=== PATIENT | female | born 1980 | race Caucasian/White ===

== ENCOUNTER → 2017-03-18 | Outpatient (CLI) | payer OTHER ==
[~2017-03-18] MED LIST: CATHETER FLUSH 10 ML SYR IV PRN; IOHEXOL 350 MG/ML 100 ML (OMNIPAQUE 350) VIAL IV ONE; LVT.15T PO; NS 100 ML (IVPB) BAG IV ONE; SPRINTEC PO
--- NOTE | 2017-03-18 10:08 | Diagnostic Imaging Report ---
PROCEDURE: CT abdomen with contrast only. TECHNIQUE: Multiple contiguous axial images were obtained through the abdomen after the administration of intravenous contrast. INDICATION: Focal nodular hyperplasia of liver with abdominal pain Multiple contiguous axial CT images of the abdomen are obtained after intravenous administration of iodinated contrast. Comparison is made to study of 02/20/2012. Once again, there are multiple nodular foci of early contrast enhancement throughout the liver which becomes isodense to liver on delayed phase images. These demonstrate heterogeneous diffuse enhancement without centripetal pattern typical for hemangioma. The largest is in the medial segment of the left lobe and measures approximately 6 x 5 x 5 cm. Additional nodules in the dome of the left lobe and the dome of the right lobe measure up to approximately 4.5 cm in diameter. There is no evidence of biliary ductal dilatation. Gallbladder surgically absent. No pancreatic, splenic or adrenal gland abnormality is identified and the kidneys have a normal appearance. No free fluid is seen is in the abdomen. There is no evidence of pathologic abdominal adenopathy. IMPRESSION: Mild overall enlargement of multiple early enhancing nodules throughout the liver. This would be consistent with focal nodular hyperplasia. Only minimal warp changer the course of 5 year followup suggests benign etiology. Dictated by: Dictated on workstation # [id number]
== END ==
LOC: RAD 08:55
PROVIDERS: ATTEND Family Medicine
DX: K76.89 Other specified diseases of liver (principal); R10.84 Generalized abdominal pain
CPT/HCPCS: 74160

== ENCOUNTER 2017-06-04 05:41 | Outpatient (CLI) | payer OTHER ==
[~2017-06-04] VITALS: Ht 157.5 cm; Wt 86.2 kg
[~2017-06-04 05:41] MED LIST changes: -CATHETER FLUSH 10 ML SYR IV PRN; -IOHEXOL 350 MG/ML 100 ML (OMNIPAQUE 350) VIAL IV ONE; -NS 100 ML (IVPB) BAG IV ONE
== END 2017-06-04 10:41 ==
LOC: PREOP 05:41
PROVIDERS: ATTEND Obstetrics & Gynecology
DX: Z01.818 Encounter for other preprocedural examination (principal); R10.2 Pelvic and perineal pain; N93.8 Other specified abnormal uterine and vaginal bleeding; N92.0 Excessive and frequent menstruation with regular cycle

== ENCOUNTER 2017-06-12 12:11 | Emergency (ER) | payer OTHER ==
[~2017-06-12] VITALS: Ht 160 cm; Wt 72.6 kg
[~2017-06-12 12:11] MED LIST changes: +DOCU100C37 PO; +IBUP-1780 PO; +OXYC-465 PO
--- NOTE | 2017-06-12 13:40 | ED GI ---
General Chief Complaint: Abdominal/GI Problems Stated Complaint: POST OP POSSIBLE IMPACTION Nursing Triage Note: PT HAD A HYSTERECTOMY ON SATURDAY AND HAS NOT HAD A BM SINCE DESPITE USING COLACE AND MIRLAX. Sepsis Screen: No Definite Risk Source of Information: Patient Exam Limitations: No Limitations History of Present Illness Time Seen By Provider: 13:36 Initial Comments The patient is a 37-year-old white female who had a laparoscopic hysterectomy bilateral salpingo-left nephrectomy plus lysis of adhesions and distraction of endometriosis and laparoscopic appendectomy on 06/07. She had a bowel movement on the evening of 06/06. She has had none since. She has not vomited and has been eating. She is taken MiraLAX at least once every day since without results. Timing/Duration: 5-6 Days Allergies and Home Medications Allergies Coded Allergies: Sulfa (Sulfonamide Antibiotics) (Verified Allergy, Intermediate, NAUSEA, 06/04/17) acetaminophen (Verified Allergy, Intermediate, N/V, 06/04/17) codeine (Verified Allergy, Intermediate, HALLICINATE, 06/04/17) hydrocodone (Verified Allergy, Intermediate, N/V, 06/04/17) cefaclor (Verified Allergy, Mild, RASH, 06/04/17) Home Medications Docusate Sodium 100 Mg Capsule, 100 MG PO BID, #60 Prescribed by: FABIEN LIMA on 06/07/171909 Ibuprofen 800 Mg Tablet, 800 MG PO Q6H, #60 Prescribed by: FABIEN LIMA on 06/07/171909 Oxycodone HCl/Acetaminophen 1 Each Tablet, 1-2 TAB PO Q4HR PRN for PAIN- MODERATE TO SEVERE, #60 Prescribed by: FABIEN LIMA on 06/07/171909 Review of Systems Constitutional: see HPI EENTM: No Symptoms Reported Respiratory: No Symptoms Reported Cardiovascular: No Symptoms Reported Gastrointestinal: See HPI Genitourinary: No Symptoms Reported Musculoskeletal: no symptoms reported Skin: no symptoms reported Psychiatric/Neurological: No Symptoms Reported Endocrine: No Symptoms Reported Hematologic/Lymphatic: No Symptoms Reported Past Czjhjno-Qqrpxu-Fysmhb Hx Patient Social History Type Used: Cigarettes Recent Foreign Travel: No Contact w/Someone Who Travel: No Recent Infectious Disease Expo: No Recent Hopitalizations: No Immunizations Up To Date Date of Influenza Vaccine: May 14, 2016 Seasonal Allergies Seasonal Allergies: Yes Surgeries History of Surgeries: Yes (WISDOM TEETH) Surgeries: Gallbladder Respiratory History of Respiratory Disorde: No Cardiovascular History of Cardiac Disorders: No Neurological History of Neurological Disord: Yes Neurological Disorders: Headaches /Migraines Reproductive System Hx Reproductive Disorders: Yes (MENORRHAGIA, CPP, DUB) Sexually Transmitted Disease: No HIV/AIDS: No Female Reproductive Disorders: Menstrual Problems, Endometriosis Gastrointestinal History of Gastrointestinal Di: Yes (FOCAL NODULE HYPERPLASIA-NO LONGER SEES SPECIALIST) Gastrointestinal Disorders: Liver Disease/Jaundice, Chronic Constipation, Chronic Diarrhea Musculoskeletal History of Musculoskeletal Dis: No Endocrine History of Endocrine Disorders: No HEENT History of HEENT Disorders: No Loss of Vision: Denies Hearing Impairment: Denies Cancer History of Cancer: No Psychosocial History of Psychiatric Problem: Yes (OCD) Behavioral Health Disorders: Anxiety Integumentary History of Skin or Integumenta: No Blood Transfusions History of Blood Disorders: No Adverse Reaction to a Blood Tr: No Physical Exam Vital Signs VS - Last 72 Hours, by Label 06/12/17 12:55 Temp 98.0 Pulse 107 Resp 18 B/P (MAP) 163/101 Pulse Ox 97 O2 Delivery Room Air Capillary Refill : Less Than 3 Seconds General Appearance: mild distress HEENT: normal ENT inspection Neck: full range of motion Respiratory: chest non-tender, lungs clear, normal breath sounds, no respiratory distress, no accessory muscle use Cardiovascular: normal peripheral pulses, regular rate, rhythm, no edema, no gallop, no JVD, no murmur Gastrointestinal: normal bowel sounds, non tender, soft, no organomegaly, no pulsatile mass Rectal: other (no stool in vault) Progress/Results/Core Measures Results/Orders My Orders Orders - DISHA ESTEVEZ MD Abdomen/Kub 1view (06/12/17 13:33) Vital Signs/I&O Vital Sign - Last 12Hours 06/12/17 12:55 Temp 98.0 Pulse 107 Resp 18 B/P (MAP) 163/101 Pulse Ox 97 O2 Delivery Room Air Blood Pressure Mean: 121 Departure Communication (Admissions) Progress Notes KUB as interpreted by me shows considerable gas throughout the GI tract. Stool is noted at what appears to be terminal small bowel. Impression Impression: Primary Impression: postop constipation Disposition: 01 HOME, SELF-CARE Condition: Stable/Unchanged Departure-Patient Inst. Decision time for Depature: 13:57 Referrals: BARRINGTON STEVENSON MD (PCP/Family) Primary Care Physician Patient Instructions: No Instuctions Given Add. Discharge Instructions: All discharge instructions reviewed with patient and/or family. Voiced understanding. Acquire 10 ounces of magnesium citrate. This can be obtained [id number] at a pharmacy. For this over ice and take it all. Geovani it with a large glass of water. DISHA ESTEVEZ MD Jun 12, 2017 13:40
[2017-06-12 14:04] VITALS: BP 177/113
--- NOTE | 2017-06-12 14:08 | Diagnostic Imaging Report ---
Supine view of the abdomen. INDICATION: Hysterectomy. Constipation. FINDINGS: No dilated bowel loops are seen with slight increased air density within small bowel loops and the colon. No significant fecal material is seen. There are surgical clips in the upper abdomen. IMPRESSION: No evidence of significant ileus or small bowel obstruction. Dictated by: Dictated on workstation # [id number]
== END 2017-06-12 14:04 | disposition home or self-care (01) ==
LOC: EDUNIT# 12:11 → ER 12:12
DX: N99.89 Other postprocedural complications and disorders of genitourinary system (principal); K59.09 Other constipation; F42.9 Obsessive-compulsive disorder, unspecified; F41.9 Anxiety disorder, unspecified; G43.909 Migraine, unspecified, not intractable, without status migrainosus; Z87.19 Personal history of other diseases of the digestive system; Z90.710 Acquired absence of both cervix and uterus; Z90.5 Acquired absence of kidney
CPT/HCPCS: 74000; 99282

== ENCOUNTER 2017-11-04 04:38 | Emergency (ER) | payer OTHER ==
[~2017-11-04] VITALS: Ht 157.5 cm; Wt 81.6 kg
[2017-11-04 05:17] LABS: BILIRUBIN,URINE NEGATIVE (NEGATIVE); CLARITY,URINE SLIGHTLY CLOUDY; GLUCOSE, URINE (UA) NEGATIVE (NEGATIVE); KETONES,URINE NEGATIVE (NEGATIVE); LEUKOCYTE ESTERASE ,URINE 1+ (NEGATIVE); NITRITE,URINE NEGATIVE (NEGATIVE); PH,URINE 7 (5-9); PROTEIN,URINE 1+ (NEGATIVE); UROBILINOGEN,URINE NORMAL (NORMAL)
[2017-11-04 05:24] LABS: BACTERIA,URINE LARGE /HPF; COLOR,URINE YELLOW; WBC,URINE RARE /HPF
[2017-11-04 05:25] LABS: AMORPHOUS SEDIMENT,UR FEW AMOR PHOSPHATE /LPF
--- NOTE | 2017-11-04 05:41 | ED Abdominal Pain ---
General Chief Complaint: Abdominal/GI Problems Stated Complaint: AB PAIN Nursing Triage Note: PATIENT HAD HYSTERECTOMY FOR ENDOMETRIOSIS IN JUNE. THEY LEFT RIGHT RIGHT OVARY. LASTNIGHT AT 2100 SHE STARTED HAVING A CRAMPING PAIN IN HER RIGHT OVARY, SIMILAR TO HOW HER LEFT USED TO FEEL BEFORE IT WAS REMOVED. SHE TOOK NAPROXEN AND IT DID NOT HELP. Sepsis Screen: No Definite Risk Source of Information: Patient Exam Limitations: No Limitations History of Present Illness Date Seen by Provider: Nov 04, 2017 Time Seen by Provider: 05:27 Initial Comments Here with report of right lower quadrant suprapubic abdominal pain that started about 9 p.m. last night. States the pain is cramping. Also has some constipation and pain with bowel movement. She denies dysuria specifically. Denies fever or chills. She did take acetaminophen last night and the naproxen this morning. These are not helping the pain. Timing/Duration: 12 Hours Severity/Quality: Moderate Location: RLQ, Suprapubic Radiation: No Radiation Activities at Onset: None Modifying Factors: Improves With Resting Associated Symptoms: No Back Pain, No Chest Pain, No Fever/Chills, No Fatigue, No Nausea/Vomiting, No Swelling/Mass in Abdomen, No Weakness Allergies and Home Medications Allergies Coded Allergies: Sulfa (Sulfonamide Antibiotics) (Verified Allergy, Intermediate, NAUSEA, 06/04/17) acetaminophen (Verified Allergy, Intermediate, N/V, 06/04/17) codeine (Verified Allergy, Intermediate, HALLICINATE, 06/04/17) hydrocodone (Verified Allergy, Intermediate, N/V, 06/04/17) cefaclor (Verified Allergy, Mild, RASH, 06/04/17) Home Medications Docusate Sodium 100 Mg Capsule, 100 MG PO BID Prescribed by: FABIEN LIMA on 06/07/171909 Ibuprofen 800 Mg Tablet, 800 MG PO Q6H Prescribed by: FABIEN LIMA on 06/07/171909 Oxycodone HCl/Acetaminophen 1 Each Tablet, 1-2 TAB PO Q4HR PRN for PAIN- MODERATE TO SEVERE Prescribed by: FABIEN LIMA on 06/07/171909 Patient Home Medication List Home Medication List Reviewed: Yes Review of Systems Constitutional: see HPI, No chills, No fever EENTM: No Symptoms Reported Respiratory: No Symptoms Reported Cardiovascular: No Symptoms Reported Gastrointestinal: See HPI, Abdominal Pain Genitourinary: Denies Burning, Denies Frequency Musculoskeletal: no symptoms reported Skin: no symptoms reported Past Iqvqzrg-Jinbnd-Ioaomu Hx Patient Social History Alcohol Use: Denies Use Recreational Drug Use: Yes (SMOKES 1/2 PPD) Smoking Status: Current Everyday Smoker Type Used: Cigarettes 2nd Hand Smoke Exposure: Yes Recent Foreign Travel: No Contact w/Someone Who Travel: No Recent Infectious Disease Expo: No Recent Hopitalizations: No Physical Abuse: No Sexual Abuse: No Immunizations Up To Date Date of Influenza Vaccine: May 14, 2016 Seasonal Allergies Seasonal Allergies: Yes Surgeries History of Surgeries: Yes (WISDOM TEETH) Surgeries: Gallbladder, Hysterectomy Respiratory History of Respiratory Disorde: No Cardiovascular History of Cardiac Disorders: No Neurological History of Neurological Disord: Yes Neurological Disorders: Headaches /Migraines Reproductive System Hx Reproductive Disorders: Yes (MENORRHAGIA, CPP, DUB) Sexually Transmitted Disease: No HIV/AIDS: No Female Reproductive Disorders: Menstrual Problems, Endometriosis Genitourinary History of Genitourinary Disor: No Gastrointestinal History of Gastrointestinal Di: Yes (FOCAL NODULE HYPERPLASIA-NO LONGER SEES SPECIALIST) Gastrointestinal Disorders: Liver Disease/Jaundice, Chronic Constipation, Chronic Diarrhea Musculoskeletal History of Musculoskeletal Dis: No Endocrine History of Endocrine Disorders: No HEENT History of HEENT Disorders: No Loss of Vision: Denies Hearing Impairment: Denies Cancer History of Cancer: No Psychosocial History of Psychiatric Problem: Yes (OCD) Behavioral Health Disorders: Anxiety Suicide Risk Score: 0 Integumentary History of Skin or Integumenta: No Blood Transfusions History of Blood Disorders: No Adverse Reaction to a Blood Tr: No Reviewed Nursing Assessment Reviewed/Agree w Nursing PMH: Yes Family Medical History Significant Family History: No Pertinent Family Hx Physical Exam Vital Signs VS - Last 72 Hours, by Label 11/04/17 04:50 Temp 97.5 Pulse 101 Resp 20 B/P (MAP) 177/123 (141) Pulse Ox 98 Capillary Refill : Less Than 3 Seconds General Appearance: WD/WN, no apparent distress Neck: full range of motion, supple Respiratory: lungs clear, normal breath sounds Cardiovascular: regular rate, rhythm, no murmur Peripheral Pulses: 2+ Dorsalis Pedis (R), 2+ Left Dors-Pedis (L) (Phenergan.) Gastrointestinal: non tender, soft Extremities: normal range of motion, non-tender Neurologic/Psychiatric: alert, oriented x 3 Skin: normal color, warm/dry Progress/Results/Core Measures Results/Orders Lab Results Laboratory Tests Test 11/04/17 05:12 Range/Units Urine Color YELLOW Urine Clarity SLIGHTLY CLOUDY Urine pH 7 5-9 Urine Specific Harvey 1.015 L 1.016-1.022 Urine Protein 1+ H NEGATIVE Urine Glucose (UA) NEGATIVE NEGATIVE Urine Ketones NEGATIVE NEGATIVE Urine Nitrite NEGATIVE NEGATIVE Urine Bilirubin NEGATIVE NEGATIVE Urine Urobilinogen NORMAL NORMAL MG/DL Urine Leukocyte Esterase 1+ H NEGATIVE Urine RBC (Auto) NEGATIVE NEGATIVE Urine RBC NONE /HPF Urine WBC RARE /HPF Urine Squamous Epithelial Cells 2-5 /HPF Urine Crystals PRESENT H /LPF Urine Amorphous Sediment FEW VINNIE PHOSPHATE H /LPF Urine Bacteria LARGE H /HPF Urine Casts NONE /LPF Urine Mucus SMALL H /LPF Urine Culture Indicated YES My Orders Orders - KELSEY SAAVEDRA MD Ua Culture If Indicated (11/04/17 05:09) Urine Culture (11/04/17 05:12) Oxycodone/Apap 5/325mg Tablet (Percocet (11/04/17 05:45) Vital Signs/I&O Vital Sign - Last 12Hours 11/04/17 04:50 Temp 97.5 Pulse 101 Resp 20 B/P (MAP) 177/123 (141) Pulse Ox 98 Blood Pressure Mean: 141 Progress Note : Progress Note Seen and evaluated. UA ordered. Questionable urinary tract infection. She does have remaining right ovary but has had appendectomy. We will initiate treatment for possible urinary tract infection and give pain medicine for possible ovarian cyst. She is not child bearing capable. It seems reasonable to see if she has improvement over the next few days and if not to seek further evaluation for ultrasound of the ovary. She agrees with that plan. Discharged home with return precautions. Patient verbalize understanding instructions and agreement with plan. She was given Cipro 500 mg when necessary oxycodone 5/325 one tab by mouth. Departure Impression Impression: Primary Impression: Right lower quadrant abdominal pain Additional Impression: Urinary tract infection Qualified Codes: N30.00 - Acute cystitis without hematuria Disposition: HOME, SELF-CARE Condition: Improved Departure-Patient Inst. Decision time for Depature: 05:48 Referrals: BARRINGTON STEVENSON MD (PCP/Family) Primary Care Physician Patient Instructions: Ovarian Cyst (DC), Acute Abdomen (Belly Pain), Adult (DC) , Urinary Tract Infection, Adult (DC) Add. Discharge Instructions: All discharge instructions reviewed with patient and/or family. Voiced understanding. You may continue naproxen 500 mg twice daily or ibuprofen 800 mg every 8 hours for pain. Take prescribed pain medicine or you may take acetaminophen 1000 mg every 8 hours as needed for pain. Do not take both as the prescribed pain medicine has acetaminophen in it. Drink plenty of fluids. Take other medications as prescribed. Follow-up with your Dr. in a few days for recheck and further evaluation especially if not improving. If you're not improved in a couple days, you should get further evaluation and potentially ultrasound to evaluate the ovary better. Return for worse pain, fever, vomiting, weakness, breathing problems or other concerns as needed. Scripts Oxycodone HCl/Acetaminophen (Oxycodone-Acetaminophen 5-325) 1 Each Tablet 1-2 EACH PO Q6H Y for PAIN, #12 TAB 0 Refills Prov: KELSEY SAAVEDRA MD 11/04/17 Ciprofloxacin HCl (Ciprofloxacin HCl) 500 Mg Tablet 500 MG PO BID, #6 TAB 0 Refills Prov: KELSEY SAAVEDRA MD 11/04/17 KELSEY SAAVEDRA MD Nov 04, 2017 05:40
[2017-11-04] MEDS ORDERED: oxyCODONE/APAP 5/325MG (PERCOCET 5) TABLET PO ONE (05:45)
[2017-11-04] MEDS ORDERED: CIPROFLOXACIN 500 MG (CIPRO) TABLET PO SCH (05:45)
[2017-11-04] MEDS ORDERED: CIPR500T4 PO (05:51)
[2017-11-04] MEDS ORDERED: OXYC-471 PO (05:51)
[2017-11-04 05:56] VITALS: BP 177/123
== END 2017-11-04 06:00 | disposition home or self-care (01) ==
LOC: EDUNIT# 04:38 → ER 04:40
DX: N39.0 Urinary tract infection, site not specified (principal); G43.909 Migraine, unspecified, not intractable, without status migrainosus; F41.9 Anxiety disorder, unspecified; F42.9 Obsessive-compulsive disorder, unspecified; F17.210 Nicotine dependence, cigarettes, uncomplicated; Z88.2 Allergy status to sulfonamides; Z88.5 Allergy status to narcotic agent; Z87.19 Personal history of other diseases of the digestive system; Z88.6 Allergy status to analgesic agent; Z88.8 Allergy status to other drugs, medicaments and biological substances; Z90.710 Acquired absence of both cervix and uterus
CPT/HCPCS: 81000; 87088; 99283

== ENCOUNTER 2018-06-27 16:37 | Emergency (ER) | payer SELFPAY ==
[~2018-06-27] VITALS: Ht 160 cm; Wt 72.6 kg
[~2018-06-27 16:37] MED LIST changes: +CIPR500T4 PO; +OXYC-471 PO
[2018-06-27 17:02] LABS: BASOPHILS % (AUTO) 0 % (0-10); EOSINOPHILS % (AUTO) 0 % (0-10); HEMATOCRIT 46 % (35-52); HEMOGLOBIN 15.7 G/DL (11.5-16.0); LYMPHOCYTES # (AUTO) 1.5 X 10^3 (1.0-4.0); LYMPHOCYTES % (AUTO) 16 % (12-44); MEAN CORPUSCULAR HEMOGLOBIN 32 PG (25-34); MEAN CORPUSCULAR HGB CONC 34 G/DL (32-36); MEAN CORPUSCULAR VOLUME 92 FL (80-99); MEAN PLATELET VOLUME 8.7 FL (7.4-10.4); MONOCYTES # (AUTO) 0.4 X 10^3 (0.0-1.0); MONOCYTES % (AUTO) 5 % (0-12); NEUTROPHILS # (AUTO) 7.6 X 10^3 (1.8-7.8); NEUTROPHILS % (AUTO) 79 % (42-75); PLATELET COUNT 255 10^3/uL (130-400); RED BLOOD COUNT 4.99 10^6/uL (4.35-5.85); RED CELL DISTRIBUTION WIDTH 12.7 % (10.0-14.5); WHITE BLOOD COUNT 9.6 10^3/uL (4.3-11.0)
--- OUTSIDE RECORDS SUMMARY | 2018-06-27 17:12 | XMS REPORT | Clinical Summary ---
Author Author [facility] Organization [facility] Address Unknown Phone Unavailable Care Team Providers Care Doll Maker Name Role Phone PCP Unavailable Allergies Not on File Current Medications Not on file Active Problems Not on file Social History Tobacco Use Types Packs/Day Years Used Date Never Assessed Sex Assigned at Date Recorded Not on file Last Filed Vital Signs Not on file Plan of Treatment Not on file Results Not on filefrom Last 3 Months
[2018-06-27 17:21] LABS: ALANINE AMINOTRANSFERASE 53 U/L (0-55); ALBUMIN 4.7 GM/DL (3.2-4.5); ALKALINE PHOSPHATASE 141 U/L (40-136); BILIRUBIN,TOTAL 0.3 MG/DL (0.1-1.0); BUN/CREATININE RATIO 7; CALCIUM 9.5 MG/DL (8.5-10.1); CARBON DIOXIDE 16 MMOL/L (21-32); CHLORIDE 109 MMOL/L (98-107); CREATININE SERUM 0.83 MG/DL (0.60-1.30); GFR ESTIMATED > 60; GLUCOSE 110 MG/DL (70-105); POTASSIUM 3.9 MMOL/L (3.6-5.0); SODIUM 138 MMOL/L (135-145); TOTAL PROTEIN 7.8 GM/DL (6.4-8.2)
[2018-06-27 17:24] LABS: ERYTHROCYTE SEDIMENTATION RATE 4 MM/HR (0-20)
--- NOTE | 2018-06-27 17:45 | Diagnostic Imaging Report ---
EXAMINATION: CT brain without contrast dated 06/27/2018. TECHNIQUE: Multiple contiguous axial images were obtained through the brain without the use of intravenous contrast. INDICATION: Optic nerve inflammation. Right eye pain and loss of vision in the right eye for the last five days. COMPARISON: No prior imaging available for comparison. FINDINGS: Axial imaging of the brain demonstrates no evidence for acute abnormality. No mass, mass effect, or midline shift is seen. There is no hydrocephalus. No acute hemorrhage or infarct appreciated. Osseous structures demonstrate no acute disease. The visualized sinuses and mastoid air cells are unremarkable. IMPRESSION: 1. No acute intracranial process. Dictated by: Dictated on workstation # [id number]
[2018-06-27] MEDS ORDERED: ACHD5005 PO (18:09)
--- NOTE | 2018-06-27 18:09 | ED EENT ---
History of Present Illness General Chief Complaint: Eye Problems Stated Complaint: LOSS OF VISION IN R EYE Nursing Triage Note: PT SENT OVER FROM DR TERRELL OFFICE WITH COMPLAINT OF BLURRED VISION IN RIGHT EYE. PT STATES IT STARTED ON SATURDAY AND HAS WORSENED. Source: patient, family () Exam Limitations: no limitations History of Present Illness Date Seen by Provider: Jun 27, 2018 Time Seen by Provider: 18:36 Allergies and Home Medications Allergies Coded Allergies: Sulfa (Sulfonamide Antibiotics) (Verified Allergy, Intermediate, NAUSEA, 06/04/17) acetaminophen (Verified Allergy, Intermediate, N/V, 06/04/17) codeine (Verified Allergy, Intermediate, HALLICINATE, 06/04/17) hydrocodone (Verified Allergy, Intermediate, N/V, 06/04/17) cefaclor (Verified Allergy, Mild, RASH, 06/04/17) Home Medications Ciprofloxacin HCl 500 Mg Tablet, 500 MG PO BID Prescribed by: KELSEY SAAVEDRA on 11/04/17 0551 Docusate Sodium 100 Mg Capsule, 100 MG PO BID Prescribed by: FABIEN LIMA on 06/07/171909 Ibuprofen 800 Mg Tablet, 800 MG PO Q6H Prescribed by: FABIEN LIMA on 06/07/171909 Oxycodone HCl/Acetaminophen 1 Each Tablet, 1-2 TAB PO Q4HR PRN for PAIN- MODERATE TO SEVERE Prescribed by: FABIEN LIMA on 06/07/171909 Oxycodone HCl/Acetaminophen 1 Each Tablet, 1-2 EACH PO Q6H PRN for PAIN Prescribed by: KELSEY SAAVEDRA on 11/04/17 0551 Oxycodone HCl/Acetaminophen 1 Each Tablet, 1 EACH PO Q6H PRN for PAIN-MODERATE Prescribed by: ONEIL MACDONALD on 06/27/181811 Past Ebnqxls-Obydoh-Jfrwng Hx Patient Social History Alcohol Use: Denies Use Recreational Drug Use: Yes (SMOKES 1/2 PPD) Smoking Status: Current Everyday Smoker Type Used: Cigarettes 2nd Hand Smoke Exposure: Yes Recent Foreign Travel: No Contact w/Someone Who Travel: No Recent Infectious Disease Expo: No Recent Hopitalizations: No Immunizations Up To Date Tetanus Booster (TDap): Unknown Date of Influenza Vaccine: May 14, 2016 Seasonal Allergies Seasonal Allergies: Yes Past Medical History Surgeries: Yes (WISDOM TEETH) Gallbladder, Hysterectomy Respiratory: No Cardiac: No Neurological: Yes Headaches /Migraines Reproductive Disorders: Yes (MENORRHAGIA, CPP, DUB) Female Reproductive Disorders: Menstrual Problems, Endometriosis Sexually Transmitted Disease: No HIV/AIDS: No Genitourinary: No Gastrointestinal: Yes (FOCAL NODULE HYPERPLASIA-NO LONGER SEES SPECIALIST) Liver Disease/Jaundice, Chronic Constipation, Chronic Diarrhea Musculoskeletal: No Endocrine: No HEENT: No Loss of Vision: Denies Hearing Impairment: Denies Cancer: No Psychosocial: Yes (OCD) Anxiety Integumentary: No Blood Disorders: No Adverse Reaction/Blood Tranf: No Family Medical History No Pertinent Family Hx Physical Exam Vital Signs Vital Signs - First Documented 06/27/18 16:48 Temp 99.8 Pulse 112 Resp 20 B/P (MAP) 144/102 (116) Pulse Ox 98 O2 Delivery Room Air Height, Weight, BMI Height: 5'3.00" Weight: 160lbs. 0oz. [id number]; 34.8 BMI Method:Stated Progress/Results/Core Measures Results/Orders Lab Results My Orders Vital Signs/I&O Blood Pressure Mean: 116 Departure Impression Primary Impression: Optic neuritis Disposition: HOME, SELF-CARE Condition: Stable/Unchanged Departure-Patient Inst. Decision time for Depature: 18:06 Referrals: JONI BECKER OD, RACHEL L MD (PCP/Family) Primary Care Physician Patient Instructions: Optic Neuritis Add. Discharge Instructions: Take medications as directed. Follow-up with Dr. Becker at [facility] first thing Saturday morning for a recheck. Return back to the emergency room for any worsening symptoms turns as needed. All discharge instructions reviewed with patient and/or family. Voiced understanding. Scripts Oxycodone HCl/Acetaminophen (Oxycodone-Acetaminophen 5-325) 1 Each Tablet 1 EACH PO Q6H PRN for PAIN-MODERATE MDD 6, #14 TAB Prov: ONEIL MACDONALD 06/27/18 ONEIL MACDONALD Jun 27, 2018 18:09
[2018-06-27] MEDS ORDERED: OXYC-471 PO (18:12)
[2018-06-27] MEDS ORDERED: oxyCODONE/APAP 5/325MG (PERCOCET 5) TABLET PO ONE (18:15)
[2018-06-27 18:48] VITALS: BP 144/102
== END 2018-06-27 18:48 | disposition home or self-care (01) ==
LOC: EDUNIT# 16:37 → ER 16:38
DX: H46.9 Unspecified optic neuritis (principal); F41.9 Anxiety disorder, unspecified; F42.9 Obsessive-compulsive disorder, unspecified; F17.210 Nicotine dependence, cigarettes, uncomplicated; Z90.710 Acquired absence of both cervix and uterus; Z87.19 Personal history of other diseases of the digestive system; Z88.2 Allergy status to sulfonamides; Z88.5 Allergy status to narcotic agent; Z88.8 Allergy status to other drugs, medicaments and biological substances
CPT/HCPCS: 36415; 70450; 80053; 85025; 85652; 86141

== ENCOUNTER 2018-12-01 19:46 | Emergency (ER) | payer BC, OTHER ==
[~2018-12-01] VITALS: Ht 160 cm; Wt 72.6 kg
[~2018-12-01 19:46] MED LIST changes: +ACHD5005 PO
[2018-12-01] MEDS ORDERED: LIDOCAINE 1% INJ 20 ML 20 ML VIAL ONE (19:49)
--- NOTE | 2018-12-01 20:11 | ED Upper Extremity ---
General Chief Complaint: Laceration Stated Complaint: LEFT HAND THUMB LAC Source: patient Exam Limitations: no limitations History of Present Illness Date Seen by Provider: Dec 01, 2018 Time Seen by Provider: 20:09 Initial Comments To ER with laceration to the pad of her left thumb from cutting apples just prior to arrival. Onset: just prior to arrival Severity: moderate Pain/Injury Location: left thumb Method of Injury: unknown Modifying Factors: Worse With Movement Allergies and Home Medications Allergies Coded Allergies: Sulfa (Sulfonamide Antibiotics) (Verified Allergy, Intermediate, NAUSEA, 06/04/17) acetaminophen (Verified Allergy, Intermediate, N/V, 06/04/17) codeine (Verified Allergy, Intermediate, HALLICINATE, 06/04/17) hydrocodone (Verified Allergy, Intermediate, N/V, 06/04/17) cefaclor (Verified Allergy, Mild, RASH, 06/04/17) Home Medications Ciprofloxacin HCl 500 Mg Tablet, 500 MG PO BID Prescribed by: KELSEY SAAVEDRA on 11/04/17550 Docusate Sodium 100 Mg Capsule, 100 MG PO BID Prescribed by: FABIEN LIMA on 06/07/171909 Ibuprofen 800 Mg Tablet, 800 MG PO Q6H Prescribed by: FABIEN LIMA on 06/07/171909 Oxycodone HCl/Acetaminophen 1 Each Tablet, 1-2 TAB PO Q4HR PRN for PAIN- MODERATE TO SEVERE Prescribed by: FABIEN LIMA on 06/07/171909 Oxycodone HCl/Acetaminophen 1 Each Tablet, 1-2 EACH PO Q6H PRN for PAIN Prescribed by: KELSEY SAAVEDRA on 11/04/17 0551 Oxycodone HCl/Acetaminophen 1 Each Tablet, 1 EACH PO Q6H PRN for PAIN-MODERATE Prescribed by: ONEIL MACDONALD on 06/27/18 1812 Patient Home Medication List Home Medication List Reviewed: Yes Review of Systems Constitutional: see HPI EENTM: see HPI Respiratory: no symptoms reported Cardiovascular: no symptoms reported Genitourinary: no symptoms reported Musculoskeletal: no symptoms reported Skin: see HPI Psychiatric/Neurological: No Symptoms Reported Past Spufzpf-Ffdchf-Hrpqov Hx Patient Social History Type Used: Cigarettes 2nd Hand Smoke Exposure: Yes Recent Foreign Travel: No Contact w/Someone Who Travel: No Recent Hopitalizations: No Immunizations Up To Date Tetanus Booster (TDap): Unknown Date of Influenza Vaccine: May 14, 2016 Seasonal Allergies Seasonal Allergies: Yes Past Medical History Surgeries: Yes (WISDOM TEETH) Gallbladder, Hysterectomy Respiratory: No Cardiac: No Neurological: Yes Headaches /Migraines Reproductive Disorders: Yes (MENORRHAGIA, CPP, DUB) Female Reproductive Disorders: Menstrual Problems, Endometriosis Sexually Transmitted Disease: No HIV/AIDS: No Genitourinary: No Gastrointestinal: Yes (FOCAL NODULE HYPERPLASIA-NO LONGER SEES SPECIALIST) Liver Disease/Jaundice, Chronic Constipation, Chronic Diarrhea Musculoskeletal: No Endocrine: No HEENT: No Loss of Vision: Denies Hearing Impairment: Denies Cancer: No Psychosocial: Yes (OCD) Anxiety Integumentary: No Blood Disorders: No Adverse Reaction/Blood Tranf: No Family Medical History No Pertinent Family Hx Physical Exam Vital Signs Capillary Refill : Less Than 3 Seconds Height, Weight, BMI Height: 5'3.00" Weight: 160lbs. 0oz. 72.982306sr; 34.8 BMI Method:Stated General Appearance: WD/WN, no apparent distress HEENT: PERRL/EOMI, normal ENT inspection Respiratory: no respiratory distress, no accessory muscle use Shoulder: normal inspection, non-tender Elbow/Forearm: normal inspection, non-tender Hand: Left, laceration (skin avulsion superficially to the tip of the left thumb. Tourniquet applied, covered with glue simply for hemostasis. Which was achieved) Neurologic/Tendon: normal sensation, normal motor functions Neurologic/Psychiatric: alert, normal mood/affect, oriented x 3 Skin: normal color, warm/dry Departure Impression Primary Impression: Skin avulsion Disposition: 01 HOME, SELF-CARE Condition: Stable Departure-Patient Inst. Decision time for Depature: 20:10 Referrals: BARRNIGTON STEVENSON MD (PCP/Family) Primary Care Physician Patient Instructions: SKIN AVULSION Add. Discharge Instructions: 1. Keep this covered with a Band-Aid as much as she can for the next few days just to help protect this. The glue should fall off on its own in 3-5 days. All discharge instructions reviewed with patient and/or family. Voiced understanding. CORI DE LA FUENTE APRN Dec 01, 2018 20:11
[2018-12-01 20:13] VITALS: BP 135/90
== END 2018-12-01 20:14 | disposition home or self-care (01) ==
LOC: EDUNIT# 19:46 → ER 19:49
DX: S61.012A Laceration without foreign body of left thumb without damage to nail, initial encounter (principal); G43.909 Migraine, unspecified, not intractable, without status migrainosus; F41.9 Anxiety disorder, unspecified; F42.9 Obsessive-compulsive disorder, unspecified; Z87.19 Personal history of other diseases of the digestive system; Z87.448 Personal history of other diseases of urinary system; Z88.2 Allergy status to sulfonamides; Z88.5 Allergy status to narcotic agent; Z88.8 Allergy status to other drugs, medicaments and biological substances; Z88.1 Allergy status to other antibiotic agents; Z77.22 Contact with and (suspected) exposure to environmental tobacco smoke (acute) (chronic); Z90.710 Acquired absence of both cervix and uterus

== ENCOUNTER 2022-12-23 11:05 | Emergency (ER) | payer SELFPAY ==
[~2022-12-23 11:05] MED LIST changes: -CIPR500T4 PO; +CIPR500T5 PO; -OXYC-465 PO; -OXYC-471 PO; +OXYC-556 PO; +OXYC1TAB11 PO
[2022-12-23 11:20] LABS: BASOPHILS # (AUTO) 0.1 10^3/uL (0.0-0.1); BASOPHILS % (AUTO) 1 % (0-10); EOSINOPHILS # (AUTO) 0.1 10^3/uL (0.0-0.3); EOSINOPHILS % (AUTO) 1 % (0-10); HEMATOCRIT 48 % (35-52); HEMOGLOBIN 16.7 g/dL (11.5-16.0); LYMPHOCYTES # (AUTO) 3.2 10^3/uL (1.0-4.0); LYMPHOCYTES % (AUTO) 32 % (12-44); MEAN CORPUSCULAR HEMOGLOBIN 31 pg (25-34); MEAN CORPUSCULAR HGB CONC 35 g/dL (32-36); MEAN CORPUSCULAR VOLUME 90 fL (80-99); MEAN PLATELET VOLUME 8.8 fL (9.0-12.2); MONOCYTES # (AUTO) 0.6 10^3/uL (0.0-1.0); MONOCYTES % (AUTO) 6 % (0-12); NEUTROPHILS # (AUTO) 6.2 10^3/uL (1.8-7.8); NEUTROPHILS % (AUTO) 61 % (42-75); PLATELET COUNT 310 10^3/uL (130-400); WHITE BLOOD COUNT 10.2 10^3/uL (4.3-11.0)
[2022-12-23] MEDS ORDERED: LORazepam INJ 2 MG/ML (ATIVAN) VIAL IVP STA (11:29)
[2022-12-23] MEDS ORDERED: ASPIRIN 81 MG CHEW (CHILDREN'S ASA) PO STA (11:29)
[2022-12-23] MEDS ORDERED: NS IV 1000 ML 1,000 ML IV SCH (11:30)
[2022-12-23] MEDS ORDERED: ANTACID SUSP 30 ML UDC (MYLANTA) PO ONE (11:30)
[2022-12-23] MEDS ORDERED: LIDOCAINE 2% VISCOUS 15 ML UDC PO ONE (11:30)
[2022-12-23 11:31] LABS: ALBUMIN 4.9 GM/DL (3.2-4.5); CHLORIDE 105 MMOL/L (98-107); POTASSIUM 3.3 MMOL/L (3.6-5.0); SODIUM 139 MMOL/L (135-145)
[2022-12-23 11:32] LABS: PROTHROMBIN TIME PATIENT 13.6 SEC (12.2-14.7)
[2022-12-23 11:33] LABS: CALCIUM 10.1 MG/DL (8.5-10.1)
[2022-12-23 11:34] LABS: GLUCOSE 126 MG/DL (70-105); TOTAL PROTEIN 8.4 GM/DL (6.4-8.2)
[2022-12-23 11:35] LABS: CARBON DIOXIDE 17 MMOL/L (21-32)
[2022-12-23 11:36] LABS: BILIRUBIN,TOTAL 0.6 MG/DL (0.1-1.0)
[2022-12-23 11:37] LABS: ALKALINE PHOSPHATASE 151 U/L (40-136); CREATININE SERUM 0.97 MG/DL (0.60-1.30); GFR ESTIMATED 74
[2022-12-23 11:38] LABS: BUN/CREATININE RATIO 11
[2022-12-23 11:40] LABS: ALANINE AMINOTRANSFERASE 37 U/L (0-55); MAGNESIUM 2.2 MG/DL (1.6-2.4)
[2022-12-23 11:41] LABS: BILIRUBIN,URINE NEGATIVE (NEGATIVE); CLARITY,URINE CLOUDY; COLOR,URINE YELLOW; GLUCOSE, URINE (UA) NEGATIVE (NEGATIVE); KETONES,URINE 1+ (NEGATIVE); LEUKOCYTE ESTERASE ,URINE NEGATIVE (NEGATIVE); NITRITE,URINE NEGATIVE (NEGATIVE); PROTEIN,URINE 1+ (NEGATIVE)
--- NOTE | 2022-12-23 11:41 | ED Chest Pain ---
General Chief Complaint: Chest Pain Stated Complaint: CHEST PAIN Nursing Triage Note: PATIENT AMB TO ROOM 1 WITH A C/O CHEST PAIN FOR THREE DAYS. (KELLY NICHOLSON) History of Present Illness Date Seen by Provider: Dec 23, 2022 Time Seen by Provider: 11:07 Initial Comments 42 year old with chest pain for 3 days, pretty much consistently, mid sternal without radiation. No worse today. No cardiac history. Has MS and generalized anxiety disorder. Treated by specialist for MS at [facility], no PCP. Does not routinely take medications for anxiety (paxil in the past, but none in 2 years). Uses cannabis routinely from dispensary in [place], [place], helps with anxiety. Uses edibles at times, last dose was 12/22/22. Took Delta 8 on 12/20/22 and 12/21/22, thinks that may have made anxiety worse and caused paranoia. She has heartburn and it was noted to be worse overnight on 12/21/22 and 12/22/22, she takes Baking Soda with water, it usually improves. She vomited once on 12/21/22, but no vomiting or nausea since then. Longstanding history of anxiety and OCD. Has been evaluated by mental health and attended counseling in the past. Denies homicidal or suicidal thoughts. Patient does report she occasionally has intrusive thoughts but has never acted upon them. She has partner, he offers support and is open to discussions with her when anxiety is significant. Reports her b/p is high at most visits but always been blamed on her anxiety and never treated. Timing/Duration: 2-3 days Severity/Quality: moderate Location: substernal Radiation: no radiation Activities at Onset: none Prior CP/Workup: no prior chest pain Modifying Factors: improves with rest ASA po VARNISH MELTER HELPER: No NTG SL VARNISH MELTER HELPER: No Associated Symptoms: abdominal pain (epigastric); No back pain, No diaphoresis, No dizziness, No edema, No fatigue, No fever/chills, No headache; heartburn; No nausea/vomiting, No rash, No shortness of breath, No swelling/lump in chest, No syncope, No weakness (KELLY NICHOLSON) Allergies and Home Medications Allergies Coded Allergies: Sulfa (Sulfonamide Antibiotics) (Verified Allergy, Intermediate, NAUSEA, 06/04/17) acetaminophen (Verified Allergy, Intermediate, N/V, 06/04/17) codeine (Verified Allergy, Intermediate, HALLICINATE, 06/04/17) hydrocodone (Verified Allergy, Intermediate, N/V, 06/04/17) cefaclor (Verified Allergy, Mild, RASH, 06/04/17) Patient Home Medication List Home Medication List Reviewed: Yes (KELLY NICHOLSON) Alprazolam (Xanax) 0.25 Mg Tablet, 0.25 MG PO Q8H PRN for ANXIETY Prescribed by: KELLY NICHOLSON on 12/23/221410 Ciprofloxacin HCl (Ciprofloxacin HCl) 500 Mg Tablet, 500 MG PO BID Prescribed by: KELSEY SAAVEDRA on 11/04/17550 Docusate Sodium (Docusate Sodium) 100 Mg Capsule, 100 MG PO BID Prescribed by: FABIEN LIMA on 06/07/171909 Ibuprofen (Ibuprofen) 800 Mg Tablet, 800 MG PO Q6H Prescribed by: FABIEN LIMA on 06/07/171909 Metoprolol Succinate (Metoprolol Succinate) 25 Mg Tab.er.24h, 25 MG PO DAILY Prescribed by: KELLY NICHOLSON on 12/23/221409 Oxycodone HCl/Acetaminophen (Oxycodone-Acetaminophen 10-325) 1 Each Tablet, 1-2 TAB PO Q4HR PRN for PAIN-MODERATE TO SEVERE Prescribed by: FABIEN LIMA on 06/07/171909 Oxycodone HCl/Acetaminophen (Oxycodone-Acetaminophen 5-325) 1 Each Tablet, 1-2 EACH PO Q6H PRN for PAIN Prescribed by: KELSEY SAAVEDRA on 11/04/17 0551 Oxycodone HCl/Acetaminophen (Oxycodone-Acetaminophen 5-325) 1 Each Tablet, 1 EACH PO Q6H PRN for PAIN-MODERATE Prescribed by: ONEIL MACDONALD on 06/27/181811 Paroxetine HCl (Paxil) 10 Mg Tablet, 10 MG PO DAILY Prescribed by: KELLY NICHOLSON on 12/23/22 141 Review of Systems Review of Systems Constitutional: no symptoms reported, see HPI Cardiovascular: See HPI, Chest Pain Gastrointestinal: No Symptoms Reported, See HPI; Denies Diarrhea; Nausea (at night); Denies Vomiting Psychiatric/Neurological: See HPI, Anxiety (KELLY NICHOLSON) All Other Systems Reviewed Negative Unless Noted: Yes (KELLY NICHOLSON) Past Gqoetxr-Zlnmnm-Yupafu Hx Patient Social History Tobacco Use?: No Use of E-Cig and/or Vaping dev: Yes E-Cig or Vaping type used: Marijuana Substance use?: Yes Substance type: Marijuana Substance frequency: Daily Alcohol Use?: No (KELLY NICHOLSON) Immunizations Up To Date Tetanus Booster (TDap): Unknown (KELLY NICHOLSON) Seasonal Allergies Seasonal Allergies: Yes (KELLY NICHOLSON) Past Medical History Surgeries: Yes (WISDOM TEETH) Appendectomy, Gallbladder, Hysterectomy Respiratory: No Cardiac: No Neurological: Yes Headaches /Migraines, Multiple Sclerosis Reproductive Disorders: Yes (MENORRHAGIA, CPP, DUB) Female Reproductive Disorders: Menstrual Problems, Endometriosis Sexually Transmitted Disease: No HIV/AIDS: No Genitourinary: No Gastrointestinal: Yes (FOCAL NODULE HYPERPLASIA-NO LONGER SEES SPECIALIST) Liver Disease/Jaundice, Chronic Constipation, Chronic Diarrhea Musculoskeletal: No Endocrine: No HEENT: No Loss of Vision: Denies Hearing Impairment: Denies Cancer: No Psychosocial: Yes (OCD) Anxiety Integumentary: No Blood Disorders: No Adverse Reaction/Blood Tranf: No (KELLY NICHOLSON) Family Medical History Reviewed and Corrections made (KELLY NICHOLSON) CAD Over 55 Years Old (father, congenital heart diseas and VT) (KELLY NICHOLSON) Physical Exam Vital Signs Vital Signs - First Documented 12/23/22 14:41 Pulse 84 Resp 18 B/P (MAP) 168/143 Pulse Ox 97 (ZAHIDA CONTI MD) Vital Signs Capillary Refill : (KELLY NICHOLSON) Height, Weight, BMI Height: 5'3.00" Weight: 160lbs. 0oz. 72.735420mm; 34.8 BMI Method:Stated General Appearance: No Apparent Distress, Anxious HEENT: PERRL/EOMI, TMs Normal, Normal ENT Inspection, Pharynx Normal Neck: Full Range of Motion, Normal Inspection, Non Tender, Supple; No Carotid Bruit Respiratory: Chest Non Tender, Lungs Clear, Normal Breath Sounds, No Accessory Muscle Use, No Respiratory Distress Cardiovascular: Regular Rate, Rhythm, No Edema, Normal Peripheral Pulses, Tachycardia Gastrointestinal: Normal Bowel Sounds, Non Tender, Soft Extremity: Normal Capillary Refill, Normal Inspection, Normal Range of Motion, No Pedal Edema Neurologic/Psychiatric: Alert, Oriented x3, No Motor/Sensory Deficits, Normal Mood/Affect Skin: Normal Color, Warm/Dry (KELLY NICHOLSON) Progress/Results/Core Measures Results/Orders Lab Results Laboratory Tests Test 12/23/22 11:10 12/23/22 11:32 Range/Units White Blood Count 10.2 4.3-11.0 10^3/uL Red Blood Count 5.33 H 3.80-5.11 10^6/uL Hemoglobin 16.7 H 11.5-16.0 g/dL Hematocrit 48 35-52 % Mean Corpuscular Volume 90 80-99 fL Mean Corpuscular Hemoglobin 31 25-34 pg Mean Corpuscular Hemoglobin Concent 35 32-36 g/dL Red Cell Distribution Width 12.3 10.0-14.5 % Platelet Count 310 130-400 10^3/uL Mean Platelet Volume 8.8 L 9.0-12.2 fL Immature Granulocyte % (Auto) 1 % Neutrophils (%) (Auto) 61 42-75 % Lymphocytes (%) (Auto) 32 12-44 % Monocytes (%) (Auto) 6 0-12 % Eosinophils (%) (Auto) 1 0-10 % Basophils (%) (Auto) 1 0-10 % Neutrophils # (Auto) 6.2 1.8-7.8 10^3/uL Lymphocytes # (Auto) 3.2 1.0-4.0 10^3/uL Monocytes # (Auto) 0.6 0.0-1.0 10^3/uL Eosinophils # (Auto) 0.1 0.0-0.3 10^3/uL Basophils # (Auto) 0.1 0.0-0.1 10^3/uL Immature Granulocyte # (Auto) 0.1 0.0-0.1 10^3/uL Prothrombin Time 13.6 12.2-14.7 SEC INR Comment 1.0 0.8-1.4 Activated Partial Thromboplast Time 33 24-35 SEC Sodium Level 139 135-145 MMOL/L Potassium Level 3.3 L 3.6-5.0 MMOL/L Chloride Level 105 98-107 MMOL/L Carbon Dioxide Level 17 L 21-32 MMOL/L Anion Gap 17 H 5-14 MMOL/L Blood Urea Nitrogen 11 7-18 MG/DL Creatinine 0.97 0.60-1.30 MG/DL Estimat Glomerular Filtration Rate 74 BUN/Creatinine Ratio 11 Glucose Level 126 H 70-105 MG/DL Calcium Level 10.1 8.5-10.1 MG/DL Corrected Calcium 8.5-10.1 MG/DL Magnesium Level 2.2 1.6-2.4 MG/DL Total Bilirubin 0.6 0.1-1.0 MG/DL Aspartate Amino Transf (AST/SGOT) 23 5-34 U/L Alanine Aminotransferase (ALT/SGPT) 37 0-55 U/L Alkaline Phosphatase 151 H 40-136 U/L Myoglobin 29.3 10.0-92.0 NG/ML Troponin I < 0.028 <0.028 NG/ML C-Reactive Protein High Sensitivity 0.21 0.00-0.50 MG/DL Total Protein 8.4 H 6.4-8.2 GM/DL Albumin 4.9 H 3.2-4.5 GM/DL Urine Color YELLOW Urine Clarity CLOUDY Urine pH 6.0 5-9 Urine Specific [place] 1.025 H 1.016-1.022 Urine Protein 1+ H NEGATIVE Urine Glucose (UA) NEGATIVE NEGATIVE Urine Ketones 1+ H NEGATIVE Urine Nitrite NEGATIVE NEGATIVE Urine Bilirubin NEGATIVE NEGATIVE Urine Urobilinogen 0.2 < = 1.0 MG/DL Urine Leukocyte Esterase NEGATIVE NEGATIVE Urine RBC (Auto) NEGATIVE NEGATIVE Urine RBC NONE /HPF Urine WBC NONE /HPF Urine Squamous Epithelial Cells 5-10 /HPF Urine Crystals NONE /LPF Urine Bacteria MODERATE H /HPF Urine Casts NONE /LPF Urine Mucus NEGATIVE /LPF Urine Culture Indicated NO Urine Opiates Screen NEGATIVE NEGATIVE Urine Oxycodone Screen NEGATIVE NEGATIVE Urine Methadone Screen NEGATIVE NEGATIVE Urine Propoxyphene Screen NEGATIVE NEGATIVE Urine Barbiturates Screen NEGATIVE NEGATIVE Ur Tricyclic Antidepressants Screen NEGATIVE NEGATIVE Urine Phencyclidine Screen NEGATIVE NEGATIVE Urine Amphetamines Screen NEGATIVE NEGATIVE Urine Methamphetamines Screen NEGATIVE NEGATIVE Urine Benzodiazepines Screen NEGATIVE NEGATIVE Urine Cocaine Screen NEGATIVE NEGATIVE Urine Cannabinoids Screen POSITIVE H NEGATIVE (ZAHIDA CONTI MD) Vital Signs/I&O 12/23/22 14:41 Pulse 84 Resp 18 B/P (MAP) 168/143 Pulse Ox 97 (ZAHIDA CONTI MD) Progress Progress Note : Time: 11:07 Progress Note Patient assessed, cardiac work-up started including EKG, aspirin 324 mg orally, labs and chest x-ray. Discussed anxiety with patient in depth, she currently rates it at a 9/10. Patient agreeable to Ativan IV, will start with 0.5 mg IV and a GI cocktail. NS 1 L per IV, patient denies eating anything today, had 2 cups of coffee. Denies nausea. 1130 patient re-assured EKG shows no indications of STEMI, will await labs and address her hypertension, but cautiously since also giving medications for anxiety. [id number] patient reports resolution of her chest pain after receiving the GI cocktail. Anxiety 6/10 after Ativan 0.5 mg, will give additional 0.5 mg of Ativan IV. 1220 B/P continues to be elevated, 180s/110s, will give Hydralazine 5 mg IV. 1230 Labs show no elevation of Troponin, discussed with patient. Discussed her anxiety at length and stressed importance to get PCP and/or behavioral health provider. She reports doing well on Paxil and is agreeable to resuming that. 1315 BP and pulse have continued to be elevated, will give Metoprolol 10 mg IV. 1345 B/P down to 150s/90-100, HR down in 80s. Patient reports no chest pain, pressure or GERD. Anxiety controlled. 1400 discharge instructions and return precautions reviewed with the patient and her partner. We will start Paxil and have Xanax for emergency anxiety attacks. We will start metoprolol XR for blood pressure. She will follow-up with a primary care and mental health provider. Discharge instructions and return precautions reviewed, all questions answered. (KELLY NICHOLSON) Initial ECG Impression Date: Dec 23, 2022 Initial ECG Impression Time: 11:11 Initial ECG Rate: 139 Initial ECG Rhythm: S.Tach Initial ECG Intervals HI 118, QRS D78, QT 306, QTc 466. [place] P57, QRS 1, T3. Initial ECG Impression: Normal Initial ECG Comparisson: No Previous ECG Available (KELLY NICHOLSON) Diagnostic Imaging Diagonstic Imaging: Xray Plain Films/CT/US/NM/MRI: chest Comments NAME: MADYSON [facility] MED REC#: [id number] PT STATUS: REG ER : 1980 PHYSICIAN: KELLY NICHOLSON ADMIT DATE: 12/23/22/ER Draft Date of Exam:12/23/22 CHEST 1 VIEW, AP/PA ONLY CLINICAL INDICATION: Patient with chest pain. EXAM: Portable chest x-ray upright view. COMPARISON: None. FINDINGS: Lungs/pleura: Lungs are clear. There is no pneumothorax. There is no pleural effusion. Mediastinum: Unremarkable. Pulmonary vasculature: Unremarkable. Heart: Unremarkable. Bones/extrathoracic soft tissue: Unremarkable. IMPRESSION: There is no radiographic evidence of acute cardiopulmonary process. Dictated on workstation # [id number] Dict: 12/23/22 1145 Trans: 12/23/22 1150 [facility], [place] [id number] Interpreted by: ANGELA BELL MD Electronically signed by: (KELLY NICHOLSON) Departure Impression Primary Impression: Chest pain Qualified Codes: R07.89 - Other chest pain Additional Impressions: Anxiety Multiple sclerosis Essential (primary) hypertension GERD (gastroesophageal reflux disease) Qualified Codes: K21.9 - Gastro-esophageal reflux disease without esophagitis Disposition: HOME, SELF-CARE Condition: Stable Departure-Patient Inst. Decision time for Depature: 13:50 (KELLY NICHOLSON) Referrals: [facility] [place]LOCAL PHYSICIAN (PCP) Primary Care Physician Patient Instructions: Acid Reflux and GERD in Adults (DC), Anxiety, Adult (DC), Chest Pain That Is Not Caused by the Heart (DC), High Blood Pressure (DC) Add. Discharge Instructions: Schedule appointment with a primary care provider in the behavioral health provider. Start the Paxil and take 1 tablet daily as prescribed it can take 2 to 3 weeks before you get therapeutic effects from this medication. Use the Xanax for acute anxiety attacks. Take over the counter Pepcid 10 mg one twice daily for heartburn. Take the blood pressure medicine as prescribed Follow-up with a primary care provider in 1 to 2 weeks to assure medications are effective and correct doses. Call [phone] or 911 of thoughts to harm self or other. Increase water intake. Continue medications for MS. Avoid Delta 8 Return to the emergency department for new, urgent healthcare needs. All discharge instructions reviewed with patient and/or family. Voiced understanding. Scripts Metoprolol Succinate (Metoprolol Succinate) 25 Mg Tab.er.24h 25 MG PO DAILY for 30 Days, #30 TAB 1 Refill Prov: KELLY NICHOLSON 12/23/22 Alprazolam (Xanax) 0.25 Mg Tablet 0.25 MG PO Q8H PRN for ANXIETY, #10 TAB 0 Refills Prov: BHARATKELLY 12/23/22 Paroxetine HCl (Paxil) 10 Mg Tablet 10 MG PO DAILY, #40 TAB 1 Refill increase by 10 mg every 7 days to max of 40 mg daily or lower dose, if anxiety is controlled. Prov: KELLY NICHOLSON 12/23/22 ATTENDING PHYSICIAN NOTE: I was physically present as attending physician in the emergency department during the care of this patient, but I was not directly involved in the decision making or delivery of care for this patient. (ZAHIDA CONTI MD) KELLY NICHOLSON Dec 23, 2022 11:41 ZAHIDA CONTI MD Dec 24, 2022 08:28
[2022-12-23] MEDS: LORazepam INJ 2 MG/ML (ATIVAN) VIAL IVP STA ×2 (11:50→11:55)
--- NOTE | 2022-12-23 11:51 | Diagnostic Imaging Report ---
CLINICAL INDICATION: Patient with chest pain. EXAM: Portable chest x-ray upright view. COMPARISON: None. FINDINGS: Lungs/pleura: Lungs are clear. There is no pneumothorax. There is no pleural effusion. Mediastinum: Unremarkable. Pulmonary vasculature: Unremarkable. Heart: Unremarkable. Bones/extrathoracic soft tissue: Unremarkable. IMPRESSION: There is no radiographic evidence of acute cardiopulmonary process. Dictated by: Dictated on workstation # [id number]
[2022-12-23 11:53] LABS: BACTERIA,URINE MODERATE /HPF
[2022-12-23 12:06] LABS: AMPHETAMINE SCREEN, URINE NEGATIVE (NEGATIVE); BARBITURATE SCREEN URINE NEGATIVE (NEGATIVE); BENZODIAZEPINES SCREEN URINE NEGATIVE (NEGATIVE); CANNABINOID SCREEN, URINE POSITIVE (NEGATIVE); COCAINE SCREEN URINE NEGATIVE (NEGATIVE); METHADONE STAT NEGATIVE (NEGATIVE); OPIATE SCREEN URINE NEGATIVE (NEGATIVE); OXYCODONE STAT NEGATIVE (NEGATIVE); PROPOXYPHENE STAT NEGATIVE (NEGATIVE); TRICYCLIC ANTIDEPRESSANTS SCRE NEGATIVE (NEGATIVE)
[2022-12-23] MEDS ORDERED: hydrALAZINE (APESOLINE) 20 MG/ML VIAL IV STA (12:12)
[2022-12-23] MEDS ORDERED: KCL 10 MEQ TAB (MICRO K) PO STA (12:42)
[2022-12-23] MEDS ORDERED: meTOprolol 5 MG/5 ML (LOPRESSOR) VIAL IV STA (12:56)
[2022-12-23] MEDS ORDERED: ALPR0.25 PO (14:10)
[2022-12-23] MEDS ORDERED: MTP25TSR PO (14:10)
[2022-12-23] MEDS ORDERED: PARO-134 PO (14:10)
[2022-12-23 14:41] VITALS: BP 168/143
== END 2022-12-23 14:43 | disposition home or self-care (01) ==
LOC: EDUNIT# 11:05 → ER 11:09
DX: G35 Multiple sclerosis (principal); F41.9 Anxiety disorder, unspecified; I10 Essential (primary) hypertension; K21.9 Gastro-esophageal reflux disease without esophagitis
CPT/HCPCS: 36415; 71045; 80053; 80306; 81000; 83735; 83874; 84484; 85025; 85610; 85730; 86141; 93005; 93041

== ENCOUNTER 2022-12-24 14:20 | Emergency (ER) | payer SELFPAY ==
[~2022-12-24] VITALS: Ht 160 cm; Wt 70.3 kg
[~2022-12-24 14:20] MED LIST changes: +ALPR0.25 PO; +MTP25TSR PO; +PARO-134 PO
[2022-12-24] MEDS ORDERED: NS IV 1000 ML 1,000 ML IV SCH (15:15)
--- NOTE | 2022-12-24 15:19 | ED Cardiac General ---
History of Present Illness General Chief Complaint: Cardiac/General Problems Stated Complaint: HIGH BLOOD PRESSURE | CHEST PAINS Nursing Triage Note: pt presents to ed with complaints of continued htn and medial cp. pt reports she was seen in ER yesterday for same s/s and told it was anxiety and gerd. pt reports she went to [facility] today to follow up on her htn and they referred her back to ed due to her htn, cp, and concerns of possible PE'S. Pt does report pain gets better after she takes a xanax. Source: patient Exam Limitations: no limitations History of Present Illness Date Seen by Provider: Dec 24, 2022 Time Seen by Provider: 14:47 Initial Comments 42-year-old female presents to the ED from the [facility] clinic for concerns of elevated blood pressure and tachycardia. Patient was seen here yesterday for chest pain. She was found to be tachycardic and hypertensive yesterday as well. She was discharged with metoprolol, but she has not started taking it due to the pharmacy not having it. She has a long history of anxiety, and they thought her symptoms were related to anxiety. She was also discharged with Paxil and Xanax. She reports she took a Xanax this morning which did help. She was at [facility] today for an ED follow-up visit. She reports continued nonradiating midsternal chest pain. She states she has had this pain constantly for the last 4 days, states it fluctuates in intensity. She denies pain with deep breaths. [facility] provider was also concerned about a PE, patient did not have a D-dimer drawn yesterday. Denies fevers, vomiting, diarrhea. She report lower abdominal pain and nausea. She states she was told that she might have a UTI yesterday, but she was not started on antibiotic. She denies leg swelling, hemoptysis, chemotherapy, immobilization, recent surgery, previous DVT, or recent long trips . 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 Allergies and Home Medications Allergies Coded Allergies: Sulfa (Sulfonamide Antibiotics) (Verified Allergy, Intermediate, NAUSEA, 06/04/17) acetaminophen (Verified Allergy, Intermediate, N/V, 06/04/17) codeine (Verified Allergy, Intermediate, HALLICINATE, 06/04/17) hydrocodone (Verified Allergy, Intermediate, N/V, 06/04/17) cefaclor (Verified Allergy, Mild, RASH, 06/04/17) Patient Home Medication List Home Medication List Reviewed: Yes Alprazolam (Xanax) 0.25 Mg Tablet, 0.25 MG PO Q8H PRN for ANXIETY Prescribed by: KELLY NICHOLSON on 12/23/22 141 Ciprofloxacin HCl (Ciprofloxacin HCl) 500 Mg Tablet, 500 MG PO BID Prescribed by: KELSEY SAAVEDRA on 11/04/17 0551 Docusate Sodium (Docusate Sodium) 100 Mg Capsule, 100 MG PO BID Prescribed by: FABIEN LIMA on 06/07/171909 Ibuprofen (Ibuprofen) 800 Mg Tablet, 800 MG PO Q6H Prescribed by: FABIEN LIMA on 06/07/171909 Metoprolol Succinate (Metoprolol Succinate) 25 Mg Tab.er.24h, 25 MG PO DAILY Prescribed by: KELLY NICHOLSON on 12/23/22 141 Oxycodone HCl/Acetaminophen (Oxycodone-Acetaminophen 10-325) 1 Each Tablet, 1-2 TAB PO Q4HR PRN for PAIN-MODERATE TO SEVERE Prescribed by: FABIEN LIMA on 06/07/171909 Oxycodone HCl/Acetaminophen (Oxycodone-Acetaminophen 5-325) 1 Each Tablet, 1-2 EACH PO Q6H PRN for PAIN Prescribed by: KELSEY SAAVEDRA on 11/04/17 0551 Oxycodone HCl/Acetaminophen (Oxycodone-Acetaminophen 5-325) 1 Each Tablet, 1 EACH PO Q6H PRN for PAIN-MODERATE Prescribed by: ONEIL MACDONALD on 06/27/181811 Paroxetine HCl (Paxil) 10 Mg Tablet, 10 MG PO DAILY Prescribed by: KELLY NICHOLSON on 12/23/22 141 Review of Systems Review of Systems Constitutional: no symptoms reported Past Actdvpu-Lbxczj-Mhxnnu Hx Patient Social History Tobacco Use?: Yes Tobacco type used: Cigarettes Smoking Status: Current Everyday Smoker Use of E-Cig and/or Vaping dev: Yes E-Cig or Vaping type used: Synthetic Cannabinoids Substance use?: Yes Substance type: Marijuana Alcohol Use?: No Pt feels they are or have been: No Immunizations Up To Date Tetanus Booster (TDap): Unknown First/Initial COVID19 Vaccinat: "TWO SHOTS" Second COVID19 Vaccination Jose: "TWO SHOTS" Third COVID19 Vaccination Date: "TWO SHOTS" Seasonal Allergies Seasonal Allergies: Yes Past Medical History Surgery/Hospitalization HX: PMH-MS, ANXIETY SX-GB, HYSTER-1 OVARY Surgeries: Yes (WISDOM TEETH) Appendectomy, Gallbladder, Hysterectomy Respiratory: No Cardiac: No Neurological: Yes Headaches /Migraines, Multiple Sclerosis Reproductive Disorders: Yes (MENORRHAGIA, CPP, DUB) Female Reproductive Disorders: Menstrual Problems, Endometriosis Sexually Transmitted Disease: No HIV/AIDS: No Genitourinary: No Gastrointestinal: Yes (FOCAL NODULE HYPERPLASIA-NO LONGER SEES SPECIALIST) Liver Disease/Jaundice, Chronic Constipation, Chronic Diarrhea Musculoskeletal: No Endocrine: No HEENT: No Loss of Vision: Denies Hearing Impairment: Denies Cancer: No Psychosocial: Yes (OCD) Anxiety Integumentary: No Blood Disorders: No Adverse Reaction/Blood Tranf: No Family Medical History CAD Over 55 Years Old Physical Exam Vital Signs Vital Signs - First Documented 12/24/22 14:33 Temp 36.8 Pulse 129 Resp 16 B/P (MAP) 159/130 (140) Pulse Ox 97 Capillary Refill : Less Than 3 Seconds Height, Weight, BMI Height: 5'3.00" Weight: 160lbs. 0oz. 72.110791iq; 27.00 BMI Method:Stated General Appearance: No Apparent Distress, WD/WN Neck: Non Tender, Supple Respiratory: Lungs Clear, Normal Breath Sounds, No Accessory Muscle Use, No Res piratory Distress Cardiovascular: No Edema, No Gallop, No JVD, No Murmur, Tachycardia Extremity: Normal Inspection, Normal Range of Motion Neurologic/Psychiatric: Alert, Normal Mood/Affect Skin: Normal Color, Warm/Dry Progress/Results/Core Measures Results/Orders Lab Results Laboratory Tests Test 12/24/22 15:21 12/24/22 16:12 Range/Units White Blood Count 8.4 4.3-11.0 10^3/uL Red Blood Count 5.03 3.80-5.11 10^6/uL Hemoglobin 15.7 11.5-16.0 g/dL Hematocrit 46 35-52 % Mean Corpuscular Volume 92 80-99 fL Mean Corpuscular Hemoglobin 31 25-34 pg Mean Corpuscular Hemoglobin Concent 34 32-36 g/dL Red Cell Distribution Width 12.1 10.0-14.5 % Platelet Count 257 130-400 10^3/uL Mean Platelet Volume 9.3 9.0-12.2 fL Immature Granulocyte % (Auto) 0 % Neutrophils (%) (Auto) 73 42-75 % Lymphocytes (%) (Auto) 20 12-44 % Monocytes (%) (Auto) 6 0-12 % Eosinophils (%) (Auto) 0 0-10 % Basophils (%) (Auto) 1 0-10 % Neutrophils # (Auto) 6.1 1.8-7.8 X 10^3 Lymphocytes # (Auto) 1.7 1.0-4.0 X 10^3 Monocytes # (Auto) 0.5 0.0-1.0 X 10^3 Eosinophils # (Auto) 0.0 0.0-0.3 10^3/uL Basophils # (Auto) 0.0 0.0-0.1 10^3/uL Immature Granulocyte # (Auto) 0.0 0.0-0.1 10^3/uL Prothrombin Time 13.9 12.2-14.7 SEC INR Comment 1.0 0.8-1.4 Activated Partial Thromboplast Time 33 24-35 SEC D-Dimer <= 0.27 0.00-0.49 UG/ML Sodium Level 137 135-145 MMOL/L Potassium Level 4.9 3.6-5.0 MMOL/L Chloride Level 110 H 98-107 MMOL/L Carbon Dioxide Level 17 L 21-32 MMOL/L Anion Gap 10 5-14 MMOL/L Blood Urea Nitrogen 9 7-18 MG/DL Creatinine 0.83 0.60-1.30 MG/DL Estimat Glomerular Filtration Rate 90 BUN/Creatinine Ratio 11 Glucose Level 104 70-105 MG/DL Calcium Level 9.4 8.5-10.1 MG/DL Corrected Calcium 9.2 8.5-10.1 MG/DL Magnesium Level 2.2 1.6-2.4 MG/DL Total Bilirubin 0.4 0.1-1.0 MG/DL Aspartate Amino Transf (AST/SGOT) 27 5-34 U/L Alanine Aminotransferase (ALT/SGPT) 29 0-55 U/L Alkaline Phosphatase 124 40-136 U/L Troponin I < 0.028 <0.028 NG/ML Total Protein 7.8 6.4-8.2 GM/DL Albumin 4.3 3.2-4.5 GM/DL Urine Color YELLOW Urine Clarity CLEAR Urine pH 6.0 5-9 Urine Specific [place] 1.010 L 1.016-1.022 Urine Protein NEGATIVE NEGATIVE Urine Glucose (UA) NEGATIVE NEGATIVE Urine Ketones 2+ H NEGATIVE Urine Nitrite NEGATIVE NEGATIVE Urine Bilirubin NEGATIVE NEGATIVE Urine Urobilinogen 0.2 < = 1.0 MG/DL Urine Leukocyte Esterase NEGATIVE NEGATIVE Urine RBC (Auto) 1+ H NEGATIVE Urine RBC NONE /HPF Urine WBC RARE /HPF Urine Squamous Epithelial Cells 0-2 /HPF Urine Crystals NONE /LPF Urine Bacteria TRACE /HPF Urine Casts NONE /LPF Urine Mucus SMALL H /LPF Urine Culture Indicated NO My Orders Orders - CHAZ SMITH APRN Ekg Tracing (12/24/22 14:47) Cbc With Automated Diff (12/24/22 15:09) Magnesium (12/24/22 15:09) Chest 1 View, Ap/Pa Only (12/24/22 15:09) Comprehensive Metabolic Panel (12/24/22 15:09) Protime With Inr (12/24/22 15:09) Partial Thromboplastin Time (12/24/22 15:09) Monitor-Rhythm Ecg Trace Only (12/24/22 15:09) Ed Iv/Invasive Line Start (12/24/22 15:09) Fibrin Degradation Products (12/24/22 15:09) Troponin I Burnett (12/24/22 15:09) Ns Iv 1000 Ml (Sodium Chloride 0.9%) (12/24/22 15:15) Metoprolol Succinate (Xl) Tab (Toprol Xl (12/24/22 15:15) Ua Culture If Indicated (12/24/22 15:33) Medications Given in ED Vital Signs/I&O 12/24/22 12/24/22 14:33 16:53 Temp 36.8 36.8 Pulse 129 104 Resp 16 16 B/P (MAP) 159/130 (140) 157/126 Pulse Ox 97 98 Blood Pressure Mean: 140 Progress Progress Note : Time: 15:18 Progress Note Patient seen and evaluated, resting comfortably in bed, no acute distress. Patient's heart rate was low 100s when I walked into the room, heart rate elevated to 120-130s when talking to patient. Based on exam and symptoms, work- up initiated including CBC, CMP, magnesium, troponin, D-dimer, coags, EKG, chest x-ray, UA. IV fluids and metoprolol PO ordered. 1646 Labs and x-ray reviewed. CBC grossly normal. CMP shows slightly elevated chloride 110. Decreased CO2 17. Troponin negative. Magnesium normal 2.2. Coags normal. D-dimer negative. UA shows 3+ ketones 1+ RBCs. Chest x-ray clear for acute cardiopulmonary process. Patient's heart rate remains in the high 90s low 100s when no staff is in the room. When I went to talk to patient about her results, heart rate increased up to the 120s. Heart rate again reduced to high 90s low 100s after I left the room. All results were discussed with patient. Discharge directions and return precautions provided. Initial ECG Impression Date: Dec 24, 2022 Initial ECG Impression Time: 14:49 Initial ECG Rate: 119 Initial ECG Rhythm: S.Tach Initial ECG Comparisson: Unchanged Diagnostic Imaging Diagonstic Imaging: Xray Plain Films/CT/US/NM/MRI: chest Comments [facility]. [place], [place] NAME: MADYSON [facility] REC#: [id number] PT STATUS: REG ER : 1980 PHYSICIAN: CHAZ SMITH APRN ADMIT DATE: 12/24/22/ER Draft Date of Exam:12/24/22 CHEST 1 VIEW, AP/PA ONLY CLINICAL INDICATION: Patient with chest pain. EXAM: Portable chest x-ray, upright view. COMPARISON: Chest x-ray dated 12/23/2022. FINDINGS: Lungs/pleura: Lungs are clear. There is no pneumothorax. There is no pleural effusion. Mediastinum: Unremarkable. Pulmonary vasculature: Unremarkable. Heart: Unremarkable. Bones/extrathoracic soft tissue: Unremarkable. IMPRESSION: There is no radiographic evidence of acute cardiopulmonary process. Dictated on workstation # [id number] Dict: 12/24/22 1518 Trans: 12/24/22 1520 [id number] Interpreted by: ANGELA BELL MD Electronically signed by: Departure Impression Primary Impression: Tachycardia Additional Impression: Hypertension Disposition: 01 HOME, SELF-CARE Condition: Stable Departure-Patient Inst. Decision time for Depature: 16:47 Referrals: [facility] (PCP/Family) Primary Care Physician Patient Instructions: Tachycardia, Controlling Your Blood Pressure Through Lifestyle Add. Discharge Instructions: Follow-up with [facility] as scheduled. Start taking your metoprolol. Continue taking your Xanax as needed. Return for severe chest pain, shortness of breath, severe headache, dizziness, blurred vision, or any other new, concerning, or worsening symptoms. All discharge instructions reviewed with patient and/or family. Voiced understanding. CHAZ SMITH APRN Dec 24, 2022 15:19
[2022-12-24 15:29] LABS: BASOPHILS % (AUTO) 1 % (0-10); EOSINOPHILS % (AUTO) 0 % (0-10); HEMATOCRIT 46 % (35-52); HEMOGLOBIN 15.7 g/dL (11.5-16.0); LYMPHOCYTES # (AUTO) 1.7 X 10^3 (1.0-4.0); LYMPHOCYTES % (AUTO) 20 % (12-44); MEAN CORPUSCULAR HEMOGLOBIN 31 pg (25-34); MEAN CORPUSCULAR HGB CONC 34 g/dL (32-36); MEAN CORPUSCULAR VOLUME 92 fL (80-99); MEAN PLATELET VOLUME 9.3 fL (9.0-12.2); MONOCYTES # (AUTO) 0.5 X 10^3 (0.0-1.0); MONOCYTES % (AUTO) 6 % (0-12); NEUTROPHILS # (AUTO) 6.1 X 10^3 (1.8-7.8); NEUTROPHILS % (AUTO) 73 % (42-75); PLATELET COUNT 257 10^3/uL (130-400); WHITE BLOOD COUNT 8.4 10^3/uL (4.3-11.0)
[2022-12-24 15:40] LABS: PROTHROMBIN TIME PATIENT 13.9 SEC (12.2-14.7)
[2022-12-24 15:41] LABS: ALBUMIN 4.3 GM/DL (3.2-4.5); POTASSIUM 4.9 MMOL/L (3.6-5.0)
[2022-12-24 15:42] LABS: CALCIUM 9.4 MG/DL (8.5-10.1)
[2022-12-24 15:43] LABS: TOTAL PROTEIN 7.8 GM/DL (6.4-8.2)
[2022-12-24 15:45] LABS: BILIRUBIN,TOTAL 0.4 MG/DL (0.1-1.0)
[2022-12-24 15:47] LABS: CREATININE SERUM 0.83 MG/DL (0.60-1.30)
[2022-12-24 15:50] LABS: MAGNESIUM 2.2 MG/DL (1.6-2.4)
[2022-12-24 16:27] LABS: BILIRUBIN,URINE NEGATIVE (NEGATIVE); CLARITY,URINE CLEAR; COLOR,URINE YELLOW; GLUCOSE, URINE (UA) NEGATIVE (NEGATIVE); KETONES,URINE 2+ (NEGATIVE); LEUKOCYTE ESTERASE ,URINE NEGATIVE (NEGATIVE); NITRITE,URINE NEGATIVE (NEGATIVE); PROTEIN,URINE NEGATIVE (NEGATIVE)
[2022-12-24 16:37] LABS: BACTERIA,URINE TRACE /HPF; SQUAMOUS EPITHELIAL CELL,UR 0-2 /HPF; WBC,URINE RARE /HPF
[2022-12-24 16:53] VITALS: BP 157/126
== END 2022-12-24 16:53 | disposition home or self-care (01) ==
LOC: EDUNIT# 14:20 → ER 14:22
DX: R00.0 Tachycardia, unspecified (principal); I10 Essential (primary) hypertension; R79.81 Abnormal blood-gas level; F17.210 Nicotine dependence, cigarettes, uncomplicated; F17.290 Nicotine dependence, other tobacco product, uncomplicated
CPT/HCPCS: 36415; 71045; 80053; 81000; 83735; 84484; 85025; 85379; 85610; 85730; 93005; 93041

== ENCOUNTER 2023-01-01 09:55 | Emergency (ER) | payer SELFPAY ==
[~2023-01-01] VITALS: Ht 160 cm; Wt 70.0 kg
[2023-01-01 14:15] VITALS: BP 135/92
[2023-01-01 15:58] LABS: AMPHETAMINE SCREEN, URINE NEGATIVE (NEGATIVE); BARBITURATE SCREEN URINE NEGATIVE (NEGATIVE); BENZODIAZEPINES SCREEN URINE NEGATIVE (NEGATIVE); CANNABINOID SCREEN, URINE POSITIVE (NEGATIVE); COCAINE SCREEN URINE NEGATIVE (NEGATIVE); METHADONE STAT NEGATIVE (NEGATIVE); OPIATE SCREEN URINE NEGATIVE (NEGATIVE); OXYCODONE STAT NEGATIVE (NEGATIVE); PROPOXYPHENE STAT NEGATIVE (NEGATIVE); TRICYCLIC ANTIDEPRESSANTS SCRE NEGATIVE (NEGATIVE)
[2023-01-01 16:03] LABS: BASOPHILS # (AUTO) 0.1 10^3/uL (0.0-0.1); BASOPHILS % (AUTO) 1 % (0-10); EOSINOPHILS % (AUTO) 0 % (0-10); HEMATOCRIT 44 % (35-52); HEMOGLOBIN 15.5 g/dL (11.5-16.0); LYMPHOCYTES # (AUTO) 1.7 10^3/uL (1.0-4.0); LYMPHOCYTES % (AUTO) 22 % (12-44); MEAN CORPUSCULAR HEMOGLOBIN 32 pg (25-34); MEAN CORPUSCULAR HGB CONC 35 g/dL (32-36); MEAN CORPUSCULAR VOLUME 90 fL (80-99); MEAN PLATELET VOLUME 8.9 fL (9.0-12.2); MONOCYTES # (AUTO) 0.5 10^3/uL (0.0-1.0); MONOCYTES % (AUTO) 7 % (0-12); NEUTROPHILS # (AUTO) 5.3 10^3/uL (1.8-7.8); NEUTROPHILS % (AUTO) 70 % (42-75); PLATELET COUNT 249 10^3/uL (130-400); WHITE BLOOD COUNT 7.6 10^3/uL (4.3-11.0)
[2023-01-01] MEDS ORDERED: ALPRAZolam 0.5 MG (XANAX) TAB PO SCH (17:15)
[2023-01-01 17:48] LABS: ALANINE AMINOTRANSFERASE 20 U/L (0-55); ALBUMIN 4.4 GM/DL (3.2-4.5); ALKALINE PHOSPHATASE 118 U/L (40-136); BILIRUBIN,TOTAL 0.3 MG/DL (0.1-1.0); BUN/CREATININE RATIO 16; CALCIUM 9.4 MG/DL (8.5-10.1); CARBON DIOXIDE 22 MMOL/L (21-32); CHLORIDE 109 MMOL/L (98-107); CREATININE SERUM 0.79 MG/DL (0.60-1.30); GFR ESTIMATED 95; GLUCOSE 105 MG/DL (70-105); POTASSIUM 4.1 MMOL/L (3.6-5.0); SODIUM 139 MMOL/L (135-145); TOTAL PROTEIN 6.8 GM/DL (6.4-8.2); TSH (THYROID ANALYZER) 2.23 UIU/ML (0.35-4.94)
[2023-01-01 18:07] LABS: LIPASE < 4 U/L (8-78)
--- NOTE | 2023-01-01 21:34 | ED Psychosocial ---
General Chief Complaint: Suicidal Ideation Risk Stated Complaint: ANXIETY Nursing Triage Note: PT AMB TO RM 9 PT CO OF SUICIDAL IDEATION FOR APPROX 4 DAYS. PT DENIES PLAN AT THIS X. STATES JUST WANTS IT TO BE OVER.PT STATES HAS WORSEND SINCE STARTING PANTOPROZOLE 4 DAYS AGO. PT IS VERY ANXIOUS. PT STATES XANAX HAS HELPED A LITTLE W ANXIETY. AT SIDE. TRIGGERING EVENTS POVERTY, HEALTH AND FAMILY PET ILLNESSES Source: patient, family Exam Limitations: no limitations History of Present Illness Date Seen by Provider: January 01, 2023 Time Seen by Provider: 10:15 Allergies and Home Medications Allergies Coded Allergies: Sulfa (Sulfonamide Antibiotics) (Verified Allergy, Intermediate, NAUSEA, 06/04/17) acetaminophen (Verified Allergy, Intermediate, N/V, 06/04/17) codeine (Verified Allergy, Intermediate, HALLICINATE, 06/04/17) hydrocodone (Verified Allergy, Intermediate, N/V, 06/04/17) cefaclor (Verified Allergy, Mild, RASH, 06/04/17) Patient Home Medication List Alprazolam (Xanax) 0.25 Mg Tablet, 0.25 MG PO Q8H PRN for ANXIETY Prescribed by: KELLY NICHOLSON on 12/23/22 1411 Ciprofloxacin HCl (Ciprofloxacin HCl) 500 Mg Tablet, 500 MG PO BID Prescribed by: KELSEY SAAVEDRA on 11/04/17 0551 Docusate Sodium (Docusate Sodium) 100 Mg Capsule, 100 MG PO BID Prescribed by: FABIEN LIMA on 06/07/171909 Ibuprofen (Ibuprofen) 800 Mg Tablet, 800 MG PO Q6H Prescribed by: FABIEN LIMA on 06/07/171909 Metoprolol Succinate (Metoprolol Succinate) 25 Mg Tab.er.24h, 25 MG PO DAILY Prescribed by: KELLY NICHOLSON on 12/23/22 141 Oxycodone HCl/Acetaminophen (Oxycodone-Acetaminophen 10-325) 1 Each Tablet, 1-2 TAB PO Q4HR PRN for PAIN-MODERATE TO SEVERE Prescribed by: FABIEN LIMA on 06/07/171909 Oxycodone HCl/Acetaminophen (Oxycodone-Acetaminophen 5-325) 1 Each Tablet, 1-2 EACH PO Q6H PRN for PAIN Prescribed by: KELSEY SAAVEDRA on 11/04/17 0551 Oxycodone HCl/Acetaminophen (Oxycodone-Acetaminophen 5-325) 1 Each Tablet, 1 EACH PO Q6H PRN for PAIN-MODERATE Prescribed by: ONEIL MACDONALD on 06/27/18 1812 Paroxetine HCl (Paxil) 10 Mg Tablet, 10 MG PO DAILY Prescribed by: KELLY NICHOLSON on 12/23/22 1410 Past Zoxuzdg-Bqxhrs-Jwlnyi Hx Patient Social History Tobacco Use?: Yes Tobacco type used: Cigarettes Smoking Status: Current Everyday Smoker Substance use?: Yes Substance type: Marijuana Substance frequency: Couple times a week Alcohol Use?: No Pt feels they are or have been: No Immunizations Up To Date Tetanus Booster (TDap): Unknown Influenza Vaccine Up-to-Date: No; Not Current First/Initial COVID19 Vaccinat: "TWO SHOTS" Second COVID19 Vaccination Jose: "TWO SHOTS" Third COVID19 Vaccination Date: "TWO SHOTS" Seasonal Allergies Seasonal Allergies: Yes Past Medical History Surgery/Hospitalization HX: PMH-MS, ANXIETY SX-GB, HYSTER-1 OVARY OCD, HAJA,GERD,HTN Surgeries: Yes (WISDOM TEETH) Appendectomy, Gallbladder, Hysterectomy Respiratory: No Cardiac: No Neurological: Yes Headaches /Migraines, Multiple Sclerosis Reproductive Disorders: Yes (MENORRHAGIA, CPP, DUB) Female Reproductive Disorders: Menstrual Problems, Endometriosis Sexually Transmitted Disease: No HIV/AIDS: No Genitourinary: No Gastrointestinal: Yes (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 0oz. 72.805416wh; 27.00 BMI Method:Stated Progress/Results/Core Measures Results/Orders Lab Results Laboratory Tests Test 5/2/23 10:25 01/01/23 11:30 Range/Units Sodium Level 139 135-145 MMOL/L Potassium Level 4.1 3.6-5.0 MMOL/L Chloride Level 109 H 98-107 MMOL/L Carbon Dioxide Level 22 21-32 MMOL/L Anion Gap 8 5-14 MMOL/L Blood Urea Nitrogen 13 7-18 MG/DL Creatinine 0.79 0.60-1.30 MG/DL Estimat Glomerular Filtration Rate 95 BUN/Creatinine Ratio 16 Glucose Level 105 70-105 MG/DL Calcium Level 9.4 8.5-10.1 MG/DL Corrected Calcium 9.1 8.5-10.1 MG/DL Total Bilirubin 0.3 0.1-1.0 MG/DL Aspartate Amino Transf (AST/SGOT) 17 5-34 U/L Alanine Aminotransferase (ALT/SGPT) 20 0-55 U/L Alkaline Phosphatase 118 40-136 U/L Total Protein 6.8 6.4-8.2 GM/DL Albumin 4.4 3.2-4.5 GM/DL Lipase < 4 L 8-78 U/L TSH [place] Testing 2.23 0.35-4.94 UIU/ML Urine Opiates Screen NEGATIVE NEGATIVE Urine Oxycodone Screen NEGATIVE NEGATIVE Urine Methadone Screen NEGATIVE NEGATIVE Urine Propoxyphene Screen NEGATIVE NEGATIVE Urine Barbiturates Screen NEGATIVE NEGATIVE Ur Tricyclic Antidepressants Screen NEGATIVE NEGATIVE Urine Phencyclidine Screen NEGATIVE NEGATIVE Urine Amphetamines Screen NEGATIVE NEGATIVE Urine Methamphetamines Screen NEGATIVE NEGATIVE Urine Benzodiazepines Screen NEGATIVE NEGATIVE Urine Cocaine Screen NEGATIVE NEGATIVE Urine Cannabinoids Screen POSITIVE H NEGATIVE Serum Alcohol < 10 <10 MG/DL White Blood Count 7.6 4.3-11.0 10^3/uL Red Blood Count 4.92 3.80-5.11 10^6/uL Hemoglobin 15.5 11.5-16.0 g/dL Hematocrit 44 35-52 % Mean Corpuscular Volume 90 80-99 fL Mean Corpuscular Hemoglobin 32 25-34 pg Mean Corpuscular Hemoglobin Concent 35 32-36 g/dL Red Cell Distribution Width 12.0 10.0-14.5 % Platelet Count 249 130-400 10^3/uL Mean Platelet Volume 8.9 L 9.0-12.2 fL Immature Granulocyte % (Auto) 0 % Neutrophils (%) (Auto) 70 42-75 % Lymphocytes (%) (Auto) 22 12-44 % Monocytes (%) (Auto) 7 0-12 % Eosinophils (%) (Auto) 0 0-10 % Basophils (%) (Auto) 1 0-10 % Neutrophils # (Auto) 5.3 1.8-7.8 10^3/uL Lymphocytes # (Auto) 1.7 1.0-4.0 10^3/uL Monocytes # (Auto) 0.5 0.0-1.0 10^3/uL Eosinophils # (Auto) 0.0 0.0-0.3 10^3/uL Basophils # (Auto) 0.1 0.0-0.1 10^3/uL Immature Granulocyte # (Auto) 0.0 0.0-0.1 10^3/uL My Orders Orders - ZAHIDA CONTI MD Drug Screen Stat (Urine) (01/01/23 10:25) Cbc With Automated Diff (01/01/23 11:30) Alcohol (01/01/23 10:25) Comprehensive Metabolic Panel (01/01/23 10:25) Lipase (01/01/23 10:25) Thyroid Analyzer (01/01/23 10:25) Alprazolam Tablet (Xanax Tablet) (01/01/23 17:15) Bh Status Checks/Observation O Q15M (01/01/23 10:51) Vital Signs/I&O 01/01/23 01/01/23 10:05 14:15 Temp 36.4 Pulse 133 82 Resp 24 16 B/P (MAP) 144/111 (122) 135/92 Pulse Ox 98 98 Blood Pressure Mean: 106 Departure Impression Primary Impression: Suicidal ideation Additional Impression: Anxiety Disposition: 01 HOME, SELF-CARE Condition: Improved Departure-Patient Inst. Decision time for Depature: 14:00 Referrals: [facility] (PCP) Primary Care Physician Patient Instructions: OUTPT [facility] Copy Copies To 1: [facility]/ZAHIDA ESTRADA MD January 01, 2023 21:34
== END 2023-01-01 14:15 | disposition home or self-care (01) ==
LOC: ER 09:57 → EDUNIT# 12:11 → ER 14:15
DX: R45.851 Suicidal ideations (principal); F41.9 Anxiety disorder, unspecified; F17.210 Nicotine dependence, cigarettes, uncomplicated
CPT/HCPCS: 80053; 80306; 83690; 84443; 85025; 99285; G0480; 36415; 80320